=== PATIENT | male | born 1965 | race Caucasian/White ===

== ENCOUNTER → 2018-05-20 | Outpatient (CLI) | payer BC ==
--- NOTE | 2018-05-20 11:11 | RT STRESS TEST REPORT ---
FACILITY: [facility] PATIENT NAME: JAMAICA CHIN : [id number] MR: [id number]: [id number] EXAM DATE: ORDERING PHYSICIAN: ANTNOIO HERNANDEZ TECHNOLOGIST: She Acquisition Time: 2018-05-20 08:51:19 Total Exercise Time: 00:09:54 Test Indications: Post [place] Medications: Protocol: BRUCE2 Max HR: 260 BPM 153% of Pred: 169 BPM Max BP: 152/084 mmHG Max Work Load: 11.5 METS mostly upsloping EKG changes in the inferior / anterior leads during exercise likely rate related Non sustained Ventricular tachycardia lasting 18 beats right after he was placed in the recovery, at that time patient was asked to sit down on the bed and it resolve by itself. Patient remained asymptomatic and rest of recovery was uneventful. Impression No EKG changes to suggest ischemia Non Sustained Ventricular Tachcardia lasting 18 beats without any symptoms Note Patient informed of the above finding Patient's ptovider Afua Rich given report over the phone Dr. Verdugo's nurse given report cc Dr. Verdugo Confirmed by SHY MARIE ([id number]) on 05/20/2018 11:11:14 AM Referred By: Overread By: SHY MARIE
== END ==
LOC: RESP 01:11
PROVIDERS: ATTEND Nurse Practitioner Family
DX: I25.2 Old myocardial infarction (principal)
CPT/HCPCS: 93017